=== PATIENT | male | born 1945 | race Caucasian/White ===

== ENCOUNTER 2021-01-20 14:00 | Inpatient (IN) | payer MEDICARE, BC ==
[2021-01-19 11:48] LABS: BASOPHILS % (AUTO) 0.6 % (0-1); EOSINOPHILS # (AUTO) 0.2 X10'3 (0-0.9); EOSINOPHILS % (AUTO) 3.7 % (0-6); LYMPHOCYTES # (AUTO) 2.4 X10'3 (1.1-4.8); LYMPHOCYTES % (AUTO) 37.5 % (21-51); MEAN CORPUSCULAR HEMOGLOBIN 31.5 PG (27.0-31.0); MEAN CORPUSCULAR HGB CONC 34.4 g/dL (33.0-36.5); MEAN CORPUSCULAR VOLUME 91.8 FL (78-98); MEAN PLATELET VOLUME 7.2 FL (7.4-10.4); MONOCYTES # (AUTO) 0.6 X10'3 (0-0.9); MONOCYTES % (AUTO) 9.4 % (2-12); NEUTROPHILS # (AUTO) 3.1 X10'3 (1.8-7.7); NEUTROPHILS % (AUTO) 48.8 % (42-75); PRE OP HEMATOCRIT 42.8 % (42.0-52.0); PRE OP HEMOGLOBIN 14.7 g/dL (14.0-17.9); PRE OP PLATELET COUNT 175 X10'3 (140-440); RED BLOOD COUNT 4.67 X10'6 (4.70-6.10); RED CELL DISTRIBUTION WIDTH 13.5 % (11.5-14.5)
[2021-01-19 11:58] LABS: PRE OP PROTIME 10.6 SECONDS (9.0-12.0)
[2021-01-19 12:02] LABS: ALBUMIN 3.5 G/DL (3.4-5.0); ALBUMIN/GLOBULIN RATIO 1.1 (1.1-1.5); ALKALINE PHOSPHATASE 44 IU/L (46-116); BLOOD UREA NITROGEN 17 MG/DL (7-18); BUN/CREATININE RATIO 18.9 (5.4-32.0); CALCIUM 8.7 MG/DL (8.5-10.1); CHLORIDE 109 MMOL/L (99-107); PRE OP ALT 33 U/L (30-65); PRE OP ANION GAP 7 (8-16); PRE OP AST 24 U/L (10-37); PRE OP BILIRUB, TOTAL 0.6 MG/DL (0.0-1.0); PRE OP GLUCOSE 96 MG/DL (70-104); PRE OP POTASSIUM 4.3 MMOL/L (3.4-5.1); PRE OP SODIUM 144 MMOL/L (135-145); TOTAL CARBON DIOXIDE 28.5 MMOL/L (24-32); TOTAL PROTEIN 6.6 G/DL (6.4-8.2); eGFR 82 ML/MIN
[2021-01-19 12:42] LABS: CLARITY,URINE CLEAR (Clear); COLOR,URINE YELLOW (Yellow); GLUCOSE, URINE NEGATIVE (Neg); KETONES,URINE TRACE mg/dl (Neg); NITRITES, URINE NEGATIVE (Neg); OCCULT BLOOD,URINE NEGATIVE (Neg); PROTEIN,URINE NEGATIVE (Neg); UA COLLECTION TYPE CLN CATCH MIDSTREAM
[2021-01-19 12:43] LABS: LEUKOCYTE ESTERASE ,URINE NEGATIVE (Neg); UROBILINOGEN,URINE 0.2 E.U/dL (0.2-1.0)
[~2021-01-20] VITALS: Ht 177.8 cm; Wt 88.6 kg
[~2021-01-20 14:00] MED LIST: ASPI81TA52 PO; BACL20TA PO; CALC-1050 PO; CELE-193 PO; CHOL100046 PO; DOXY-135 PO; GLUC-95 PO; HYDR-3972 PO; KRIL1CAP19 PO; METO-395 PO; PANT40TA54 PO; ceFAZolin 2gm in dextrose, iso 50 ML IV ONE
[2021-01-21] MEDS ORDERED: ringers solution, lacted 1,000 ML IV SCH (05:00)
[2021-01-21] MEDS ORDERED: ceFAZolin 2gm in dextrose, iso 50 ML IV ONE (05:30)
[2021-01-21] MEDS ORDERED: famotidine 20mg tablet PO ONE (05:30)
[2021-01-21] MEDS ORDERED: DOCUMENT DATE & TIME OF BETA-BLOCKER PO ONE (05:30)
[2021-01-21] MEDS ORDERED: nitroPRUSSIDE (NIPRIDE) (200MCG/ML) 100ML Drip IV SCH (06:00)
[2021-01-21] MEDS ORDERED: phenylephrine 50 MG in NS 250ml IVPB IV SCH (06:00)
[2021-01-28] VITALS (14 sets, daily range): BP systolic 108–152; BP diastolic 61–86
[2021-01-28] MEDS: phenylephrine 50 MG in NS 250ml IVPB IV SCH (05:30)
[2021-01-28] MEDS: nitroPRUSSIDE (NIPRIDE) (200MCG/ML) 100ML Drip IV SCH ×2 (05:30→20:59)
[2021-01-28] MEDS ORDERED: famotidine 20mg tablet PO ONE (05:30)
[2021-01-28] MEDS ORDERED: ringers solution, lacted 1,000 ML IV SCH ×2 (05:30→13:25)
[2021-01-28] MEDS ORDERED: DOCUMENT DATE & TIME OF BETA-BLOCKER PO ONE (05:30)
[2021-01-28] MEDS ORDERED: ceFAZolin 2gm in dextrose, iso 50 ML IV ONE (05:30)
[2021-01-28] MEDS ORDERED: LIDOcaine 1% 30ml preserv. free vial ONE (07:14)
[2021-01-28] MEDS ORDERED: protamine sulfate 10mg/ml inj. ONE (07:14)
[2021-01-28] MEDS ORDERED: heparin 10,000 units/1 ML INJ ONE ×2 (07:14→13:50)
[2021-01-28] MEDS ORDERED: BUPIVAcaine/PF 2.5 mg/ml (0.25%) 30ml vial ONE (07:14)
[2021-01-28] MEDS ORDERED: hydrALAZINE 20mg/ml inj. IV PRN (13:25)
[2021-01-28] MEDS ORDERED: labetalol 20mg/4ml (5mg/ml) syringe IV PRN (13:25)
[2021-01-28] MEDS ORDERED: nitroPRUSSIDE sod inj. 50 MG in dextrose 5%-water 248 ML IV SCH (13:25)
[2021-01-28] MEDS ORDERED: ondansetron/PF 4mg/2ml inj IV PRN (13:25)
[2021-01-28] MEDS ORDERED: morphine 4 MG/ML inj SYRINge IV PRN (13:25)
[2021-01-28] MEDS ORDERED: fentaNYL/PF 50MCG/1 ML 2ML syringe IV PRN ×2 (13:25)
[2021-01-28] MEDS ORDERED: PHENYLephrine 10mg/ml inj. 100 MG in normal saline 250ml IV soln 240 ML IV SCH (13:25)
[2021-01-28] MEDS ORDERED: morphine 2 MG/ML inj. syringe IV PRN (13:25)
[2021-01-28] MEDS ORDERED: LIDOcaine 1% (10mg/ml) 2ml vial ONE (13:50)
[2021-01-28] MEDS ORDERED: fentaNYL /PF 50mcg/ml 5ml ampule ONE (15:00)
[2021-01-28] MEDS ORDERED: rocuronium 10mg/ml inj IV ONE ×3 (15:11→16:25)
[2021-01-28] MEDS ORDERED: desflurane 240ml liquid inh. IH ONE (15:11)
[2021-01-28] MEDS ORDERED: ondansetron/PF 4mg/2ml inj ONE (15:11)
[2021-01-28] MEDS ORDERED: dexamethasone sod phosphate 10mg/ml inj ONE (15:11)
[2021-01-28] MEDS ORDERED: sevoflurane 250ml liquid IH ONE (15:11)
[2021-01-28] MEDS ORDERED: LIDOcaine 2% (20mg/ml) 5ml vial ONE (15:14)
[2021-01-28] MEDS ORDERED: glycopyrrolate 0.2mg/ml inj ONE (15:14)
[2021-01-28] MEDS ORDERED: propofol inj 20 ML IV ONE (15:14)
[2021-01-28] MEDS ORDERED: labetalol 20mg/4ml (5mg/ml) syringe IV ONE (16:15)
--- NOTE | 2021-01-28 16:51 | NUR ---
Received from OR via , accompanied by Anesthesiologist DR SPENCER and report given by Anesthesiolgist. AWAKENS TO VOICE. VITALS STABLE. DRESSINGS DI. VALENCIA PAIN. HOLLIS TO LT NECK WITH SM AMNT RED LIQUID IN THE BULB. FACE IS SYMETRICLE.EDUCATION PROFESSOR STRONG AND EQUAL. PUSH PULLS TO FEET ARE STRONG AND EQUAL.NO SWELLING NOTED AT SURGICAL SITE.
[2021-01-28] MEDS ORDERED: meperidine/PF 25mg/ml syringe IV ONE (17:05)
[2021-01-28] MEDS ORDERED: CHONDROITIN PO SCH (17:40)
[2021-01-28] MEDS ORDERED: GLUCOSAMINE HCL PO SCH (17:40)
[2021-01-28] MEDS ORDERED: baclofen 10mg tablet PO PRN ×2 (17:40→17:47)
--- NOTE | 2021-01-28 18:30 | NUR ---
Patient in room PCU 3015. I have received report from Trevor HAMMER and had the opportunity to ask questions and assume patient care.
--- NOTE | 2021-01-28 18:41 | NUR ---
Report called to receiving nurse. Transferred via BED Belongings . Special Issues communicated to receiving nurse. AWAKE AND ORIENTED. VITALS STABLE. DRESSING DI. NO SWELLING NOTED. VALENCIA PAIN. NO NEURO DEFISITES NOTED. TO [facility] [place] [id number] AT THIS TIME.
--- NOTE | 2021-01-28 19:00 | NUR ---
Pt arrived to unit via ICU bed. Belongings on bed. at bedside. Pt vitals were taken and was in no apparent distress. Monitoring pt per unit protocol and MD orders.
[2021-01-29] MEDS: phenylephrine 50 MG in NS 250ml IVPB IV SCH (00:51)
[2021-01-29 02:00] VITALS: BP 96/72
[2021-01-29] MEDS: HYDROcodone/acetaminophen 10/325mg tab PO PRN ×2 (02:37→08:20)
[2021-01-29 06:00] VITALS: BP 133/56
--- NOTE | 2021-01-29 06:14 | NUR ---
Problems reprioritized. Patient report given, questions answered & plan of care reviewed with Ayla HAMMER.
--- NOTE | 2021-01-29 06:24 | NUR ---
Patient in room PCU 3015. I have received report from Brooke HAMMER and had the opportunity to ask questions and assume patient care.
[2021-01-29 06:58] LABS: BASOPHILS % (AUTO) 0.1 % (0-1); EOSINOPHILS % (AUTO) 0 % (0-6); HEMOGLOBIN 14.4 g/dl (14.0-17.9); LYMPHOCYTES # (AUTO) 1.1 X10'3 (1.1-4.8); MEAN CORPUSCULAR HEMOGLOBIN 31.7 PG (27.0-31.0); MEAN CORPUSCULAR HGB CONC 34.2 g/dL (33.0-36.5); MEAN CORPUSCULAR VOLUME 92.5 FL (78-98); MEAN PLATELET VOLUME 7.5 FL (7.4-10.4); MONOCYTES # (AUTO) 0.4 X10'3 (0-0.9); MONOCYTES % (AUTO) 4.1 % (2-12); NEUTROPHILS # (AUTO) 8.9 X10'3 (1.8-7.7); NEUTROPHILS % (AUTO) 84.8 % (42-75); PLATELET COUNT 204 X10'3 (140-440); RED BLOOD COUNT 4.53 X10'6 (4.70-6.10); RED CELL DISTRIBUTION WIDTH 13.7 % (11.5-14.5); WHITE BLOOD COUNT 10.5 X10'3 (4.5-11.0)
[2021-01-29 07:21] LABS: ALANINE AMINOTRANSFERASE 28 U/L (12-78); ALBUMIN 3.2 G/DL (3.4-5.0); ALBUMIN/GLOBULIN RATIO 1.1 (1.1-1.5); ALKALINE PHOSPHATASE 40 IU/L (46-116); ANION GAP 11 (8-16); ASPARTATE AMINO TRANSFERASE 23 U/L (10-37); BILIRUBIN,TOTAL 0.9 MG/DL (0.1-1.0); BLOOD UREA NITROGEN 16 MG/DL (7-18); BUN/CREATININE RATIO 18.4 (5.4-32.0); CALCIUM 8.7 MG/DL (8.5-10.1); CHLORIDE 109 MMOL/L (99-107); CREATININE 0.87 MG/DL (0.60-1.10); GLUCOSE 135 MG/DL (70-104); POTASSIUM 4.6 MMOL/L (3.5-5.1); SODIUM 145 MMOL/L (135-145); TOTAL CARBON DIOXIDE 24.6 MMOL/L (24-32); TOTAL PROTEIN 6.2 G/DL (6.4-8.2); eGFR 86 ML/MIN
[2021-01-29] MEDS ORDERED: COP PO SCH (08:00)
[2021-01-29] MEDS ORDERED: [UNRECOGNIZED DRUG - OTHER] PO SCH (08:00)
[2021-01-29] MEDS ORDERED: cholecalciferol (vitamin D3) 1,000 unit (25mcg) tablet PO SCH (08:00)
[2021-01-29] MEDS ORDERED: celeCOXIB 100mg capsule PO SCH (08:00)
[2021-01-29] MEDS ORDERED: aspirin 81mg, enteric-coated 1 TAB TABLET.DR PO SCH (08:00)
[2021-01-29] MEDS ORDERED: MANG PO SCH (08:00)
[2021-01-29] MEDS ORDERED: CALCIUM CIT PO SCH (08:00)
[2021-01-29] MEDS ORDERED: pantoprazole 40mg Tablet.DR PO SCH (08:00)
[2021-01-29] MEDS ORDERED: metoprolol succinate 25mg (24-HOUR) SR. Tablet PO SCH (08:00)
[2021-01-29] MEDS ORDERED: D3 PO SCH (08:00)
[2021-01-29] MEDS ORDERED: MAG PO SCH (08:00)
[2021-01-29] MEDS ORDERED: non-formulary drug (Krill/Om-3/Dha/Epa/Phospho/Ast (Krill Oil 500 mg Softgel) 1 TAB) PO SCH (08:00)
[2021-01-29] MEDS ORDERED: DOXYCYCLINE 100MG CAPSULE PO SCH (08:00)
[2021-01-29 11:00] VITALS: BP 55/56
[2021-01-29] MEDS: nitroPRUSSIDE (NIPRIDE) (200MCG/ML) 100ML Drip IV SCH (12:28)
--- NOTE | 2021-01-29 14:49 | NUR ---
Patient stable for discharge per Dr Doe. PIV DC'd with cannula intact, HOLLIS drain DC'd, Tele DC'd. Patient verbalized understanding of discharge instructions, the importance of follow up care at Dr. Doe' office, and the new medication regimen. Patient and belongings were escorted out to the family vehicle for transport home.
== END 2021-01-29 14:25 | disposition home or self-care (01) | DRG 39 ==
LOC: PAS IN 01-28 09:07 → UNDOADMIN 01-28 09:07 → PAS IN 01-28 17:22 → PCU 3S 01-28 18:50 → PAS IN 01-28 18:50
PROVIDERS: ADMIT Surgery; ATTEND Surgery
PROC: 03CL0ZZ Extirpation of Matter from Left Internal Carotid Artery, Open Approach (ICD-10-PCS; 2021-01-28)
PROC: 03CN0ZZ Extirpation of Matter from Left External Carotid Artery, Open Approach (ICD-10-PCS; 2021-01-28)
PROC: 03UJ0KZ Supplement Left Common Carotid Artery with Nonautologous Tissue Substitute, Open Approach (ICD-10-PCS; 2021-01-28)
PROC: 03UL0KZ Supplement Left Internal Carotid Artery with Nonautologous Tissue Substitute, Open Approach (ICD-10-PCS; 2021-01-28)
PROC: 03UN0KZ Supplement Left External Carotid Artery with Nonautologous Tissue Substitute, Open Approach (ICD-10-PCS; 2021-01-28)
PROC: 07B20ZZ Excision of Left Neck Lymphatic, Open Approach (ICD-10-PCS; 2021-01-28)
PROC: 03CJ0ZZ Extirpation of Matter from Left Common Carotid Artery, Open Approach (ICD-10-PCS; principal; 2021-01-28 15:11)
DX: I65.22 Occlusion and stenosis of left carotid artery (principal); E78.5 Hyperlipidemia, unspecified; I25.10 Atherosclerotic heart disease of native coronary artery without angina pectoris; G89.29 Other chronic pain; I11.9 Hypertensive heart disease without heart failure; Z96.651 Presence of right artificial knee joint; I25.2 Old myocardial infarction; Z82.49 Family history of ischemic heart disease and other diseases of the circulatory system; Z87.442 Personal history of urinary calculi; Z87.891 Personal history of nicotine dependence; Z98.61 Coronary angioplasty status
CPT/HCPCS: 36415; 71046; 80053; 81003; 82948; 85025; 85610; 85730; 86885; 86900; 86901; 87081; 87635; 88305; 95813; A4215; A4618; A6258; A7000; C1768; G0378; J1100; J1644; J2001; J2175; J2370; J2405; J2704; J2720; J3010; J3490; J7040; J7050; J7060; J7120

== ENCOUNTER 2021-02-19 04:12 | Emergency (ER) | payer MEDICARE, BC ==
[~2021-02-19] VITALS: Ht 177.8 cm; Wt 86.4 kg
[~2021-02-19 04:12] MED LIST changes: -ceFAZolin 2gm in dextrose, iso 50 ML IV ONE
[2021-02-19 04:16] VITALS: BP 135/68
[2021-02-19] MEDS ORDERED: acetaminophen 325mg tablet PO ONE (06:25)
[2021-02-19] MEDS ORDERED: ibuprofen tablet 400 MG TABLET PO ONE (08:00)
[2021-02-19] MEDS ORDERED: ibuprofen 200mg tablet PO ONE (08:05)
== END 2021-02-19 08:58 | disposition home or self-care (01) ==
LOC: ER 04:13
DX: S52.124A Nondisplaced fracture of head of right radius, initial encounter for closed fracture (principal); S52.044A Nondisplaced fracture of coronoid process of right ulna, initial encounter for closed fracture; S00.81XA Abrasion of other part of head, initial encounter; M25.511 Pain in right shoulder; M79.602 Pain in left arm; R51.9 Headache, unspecified; Z79.82 Long term (current) use of aspirin; Z79.2 Long term (current) use of antibiotics; Z79.899 Other long term (current) drug therapy; W19.XXXA Unspecified fall, initial encounter; Y93.89 Activity, other specified; Y92.89 Other specified places as the place of occurrence of the external cause; Y99.8 Other external cause status
CPT/HCPCS: 29105; 70450; 70486; 72125; 73080; 99285